=== PATIENT | male | born 1965 | race Caucasian/White ===

== ENCOUNTER → 2018-03-06 | Outpatient (CLI) | payer OTHER ==
[~2018-03-06] MED LIST: NORCO 5-325 TA1 EACH PO; TOBREX5 ML OP
[2018-03-06 16:25] LABS: CHOLESTEROL 210 mg/dL (<200); HDL CHOLESTEROL 68 mg/dL (>40); LDL CHOLESTEROL 104 mg/dL (<100); TC:HDL 3.1 Ratio (Not establshd); TRIGLYCERIDE 193 mg/dL (<150); VLDL 39 mg/dL (<40)
[2018-03-06 16:26] LABS: SERUM ASSESSMENT CLEAR
== END ==
LOC: M.LAB 15:10
PROVIDERS: Psychiatry & Neurology Neuromuscular Medicine
DX: R93.8 Abnormal findings on diagnostic imaging of other specified body structures (principal); Z86.73 Personal history of transient ischemic attack (TIA), and cerebral infarction without residual deficits